=== PATIENT | male | born 1960 | race Caucasian/White ===

== ENCOUNTER → 2017-05-30 | Outpatient (CLI) | payer BC ==
--- NOTE | ~2017-05-30 | EKG ---
PATIENT: IVAN ROUSSEAU UNIT #: [id number] Ventricular Rate: 60 BPM Atrial Rate: 60 BPM P-R Interval: 156 ms QRS Duration: 94 ms Q-T Interval: 400 ms QTC Calculation(Bezet): 400 ms P [place]: 69 degrees Calculated T [place]: 50 degrees Diagnosis Line: Normal sinus rhythm Diagnosis Line: Normal ECG Diagnosis Line: No previous ECGs available Diagnosis Line: Confirmed by VLADIMIR BYERS MD ([id number]) on 05/31/2017 Diagnosis Line: 5:00:59 PM INTERPRETING MD: MODESTA AGUILAR
--- NOTE | ~2017-05-30 | CR63 ---
[facility] A Service of [facility] & [facility] RADIOLOGY TEXT RESULTS PATIENT: IVAN ROUSSEAU LOCATION: [facility] : 58 UNIT #: [id number] AGE: [address]: Demar Lewis MD SEX: M ORDER DR: [id number] [facility] [address] [place], [place] [address] [id number] O MR#: [id number] Acc #: [id number] NAME: IVAN ROUSSEAU : 1960 SEX: M STUDY DATE/TIME: 05/30/2017 9:34 UNIT: [facility] ROOM: STUDY DESCRIPTION: CR Chest 2 View Attending Physician: Demar Lewis M.D. Referring Physician: Demar Lewis M.D. Ordering Physician: Demar Lewis M.D. Primary Care Physician: Michelle José M.D. MEDICAL IMAGING REPORT This report is preliminary unless electronic signature is present EXAM Chest, two views, dated 05/30/2017. COMPARISON Chest, two views dated 02/02/2010. HISTORY Preop evaluation for bladder stone removal on 06/06/2017. The patient has shortness of air with exertion over the last 3 days. FINDINGS Two views of the chest were obtained. PA and lateral examination of the chest upright shows a good expansion of the parenchyma with a normal distribution of the pulmonary vascularity. There is no indication of congestion, effusion, infiltrate, tumor, or nodular density. The pleural reflections and diaphragmatic contours are normal. The cardiac silhouette and mediastinal anatomy is within normal limits. IMPRESSION Normal two views of the chest. Dictated by... Yarelis Garrison M.D. THIS IS AN ELECTRONICALLY VERIFIED REPORT Yarelis Garrison M.D. at 05/31/2017 3:02 PM CPR/jt TD: 05/30/2017 20:38 JOB #: [id number] MEDICAL IMAGING REPORT Page 1 of 1 COPY
[2017-05-30 09:28] LABS: HEMATOCRIT 45.1 % (38.0-50.0); HEMOGLOBIN 15.5 gm/dL (13.0-16.0); MEAN CELL VOLUME 87.6 FL (83-96); MEAN CORPUSCULAR HGB CONC 34.3 g/dL (30-36); MEAN PLATELET VOLUME 8.6 FL (6.5-11.5); RED BLOOD COUNT 5.15 X10e (3.90-5.60); RED CELL DISTRIBUTION WIDTH 13.5 % (11.0-15.5); WHITE BLOOD COUNT 7.2 X10e3 (4.0-10.5)
[2017-05-30 10:47] LABS: BUN/CREATININE RATIO 23.33; CALCIUM SERUM 9.6 mg/dL (8.4-10.2); CREATININE SERUM 0.9 mg/dL (0.6-1.4); GLOM FILT RATE Estimated 93.8 mL/min (>60); POTASSIUM 4.2 mmol/L (3.5-5.1)
== END | disposition home or self-care (01) ==
LOC: CLAB 08:39
PROVIDERS: Urology
DX: Z01.818 Encounter for other preprocedural examination (principal); N21.0 Calculus in bladder
CPT/HCPCS: 36415; 71020; 80048; 85027; 93005